=== PATIENT | female | born 1985 | race Caucasian/White ===

== ENCOUNTER 2017-10-28 12:57 | Emergency (ER) | payer OTHER ==
[~2017-10-28] VITALS: Ht 165.1 cm; Wt 91.6 kg
[~2017-10-28 12:57] MED LIST: CLONAZEPAM1 M1; ZOLOFT100 MG
[2017-10-28] MEDS ORDERED: PRENATAL 19 TA1 EAC1 PO (13:13)
== END 2017-10-28 15:23 | disposition home or self-care (01) ==
LOC: ER 12:57
DX: B34.9 Viral infection, unspecified (principal)